=== PATIENT | male | born 1955 | race Caucasian/White ===

== ENCOUNTER 2016-09-13 06:42 | Outpatient (CLI) | payer BC ==
[~2016-09-13] VITALS: Ht 180.3 cm; Wt 93.0 kg
[~2016-09-13 06:42] MED LIST: ASPI-482 PO; ATOR20TA58 PO; CLOP75TA PO; no home meds
[2016-09-13] MEDS ORDERED: OMEG100021 PO (07:10)
[2016-09-13] MEDS ORDERED: ASPI81TA2 PO (07:10)
[2016-09-13 07:17] VITALS: BP 109/61
[2016-09-13 07:38] LABS: HEMATOCRIT 44.2 % (39.0-53.0); RED BLOOD COUNT 4.5 x10^6/uL (4.30-5.70); RED CELL DISTRIBUTION WIDTH 13.5 % (11.5-14.5); WHITE BLOOD COUNT 10.2 x10^3/uL (4.0-11.0)
[2016-09-13 07:47] LABS: PROTHROMBIN TIME PATIENT 12.7 SEC (11.7-14.0)
[2016-09-13] MEDS ORDERED: LIDOCAINE 2%/EPI 1:100,000 20 ML VIAL. ONE (07:54)
[2016-09-13] MEDS ORDERED: LIDOCAINE 2%/EPI 1:100,000 20 ML VIAL. IJ ONE (08:00)
--- NOTE | 2016-09-13 09:36 | CARD ---
APPROVED REPORT EXAM Loop Recorder HISTORY The Patient is a 61 year-old male with a history of prior CVA INDICATIONS Removal of Loop recorder After appropriate informed consent, the patient was brought to the director of labor relations. Patient had a loop recor ghislaine inserted to rule out arrhythmia as the cause of his crytogenic stroke. Given no documented arrhyt hmias over the last year, his loop recorder was removed today. The left chest area was prepped and draped in usual sterile fashion. 10 ml of lidocaine was administe d at the site of the loop recorder in the left sternal space. A 0.25 inch incision was made with a 11 blade scalpel and the device was easily removed. Hemostasis was achieved and a sterile dressing appl ied along with steri-strips. CONSCIOUS SEDATION AGENTS None EXPLANTED DEVICES [employer] Linq device PROCEDURE After explaining the risks, benefits, and alternative options, informed consent was obtained from the patient. The patient was brought to the cardiac catheterization lab and the left chest and shoulder were prepp ed and draped in the usual fashion. During this case, Fluoroscopy and no contrast were used for imaging. COMPLICATIONS None CONCLUSION Successful loop recorder removal.
== END 2016-09-13 09:29 | disposition home or self-care (01) ==
LOC: CCL 06:42
PROVIDERS: ATTEND Internal Medicine Cardiovascular Disease
DX: Z45.09 Encounter for adjustment and management of other cardiac device (principal); Z86.73 Personal history of transient ischemic attack (TIA), and cerebral infarction without residual deficits; E78.00 Pure hypercholesterolemia, unspecified; Z79.01 Long term (current) use of anticoagulants
CPT/HCPCS: 33284; 36415; 85027; 85610; 85730; J3490